=== PATIENT | female | born 1980 | race Caucasian/White ===

== ENCOUNTER → 2023-10-07 | Outpatient (CLI) | payer OTHER | LOC: MC.RAD 07:46 | DX: Z12.31 Encounter for screening mammogram for malignant neoplasm of breast (principal); N63.10 Unspecified lump in the right breast, unspecified quadrant; N64.89 Other specified disorders of breast ==

== ENCOUNTER → 2023-10-27 | Outpatient (CLI) | payer OTHER | LOC: MC.RAD 12:23 | DX: R92.8 Other abnormal and inconclusive findings on diagnostic imaging of breast (principal) | CPT/HCPCS: A4648 ==